=== PATIENT | female | born 1995 | race Asian ===

== ENCOUNTER 2023-08-07 03:20 | Inpatient (IN) | payer BC ==
[2023-08-07] MEDS ORDERED: OXYTOCIN 30 UNITS/500 ML NS 30 UNIT in SALINE 1 500ML.BAG IV SCH (04:00)
[2023-08-07] MEDS ORDERED: miSOPROStoL 200 MCG TAB PO PRN (04:00)
[2023-08-07] MEDS ORDERED: METHYLERGONOVINE 0.2 MG/ML 1 ML AMP IM PRN (04:00)
[2023-08-07] MEDS ORDERED: CARBOPROST TROMETHAMINE 250 MCG/ML 1 ML AMP IM PRN (04:00)
[2023-08-07] MEDS ORDERED: TRANEXAMIC 1,000 MG/100ML-NACL 1,000 MG in EMPTY BAG 1 BAG IV PRN (04:00)
[2023-08-07] MEDS ORDERED: OXYTOCIN 10 UNIT/ML 1 ML VIAL IM PRN (04:00)
[2023-08-07 04:14] LABS: Basophils % (A) 0 %; Eosinophils # (A) 0.1 k/uL (0-0.7); Eosinophils % (A) 1 %; HCT 27.8 % (34.0-46.0); HGB 9.3 gm/dL (11.4-16.0); Hypochromasia Slight; Lymphocytes % (A) 20 %; MCH 27.1 pg (25.0-35.0); MCHC 33.3 g/dL (31.0-37.0); MCV 81.4 fL (80.0-100.0); Mean Platelet Volume 10.9; Monocytes # (A) 0.5 k/uL (0-1.0); Monocytes % (A) 5 %; Neutrophils # (A) 6.8 k/uL (1.3-7.7); Neutrophils % (A) 72 %; Platelet Count 164 k/uL (150-450); Poikilocytosis Moderate; RBC 3.42 m/uL (3.80-5.40); RDW 13.7 % (11.5-15.5); WBC 9.5 k/uL (3.8-10.6)
[2023-08-07] MEDS: LACTATED RINGERS 1,000 ML IV SCH (04:15)
[2023-08-07] MEDS: CITRIC ACID-SODIUM CITRATE 15 ML CUP PO ONE (04:44)
[2023-08-07] MEDS ORDERED: KETOROLAC 15 MG/ML 1 ML VIAL ONE (04:49)
[2023-08-07] MEDS ORDERED: MORPHINE SULFATE (PF) 0.3 MG/0.3 ML SYR ONE (04:49)
[2023-08-07] MEDS ORDERED: OXYTOCIN 30 UNITS/500 ML NS BAG IV ONE (04:49)
[2023-08-07] MEDS ORDERED: ONDANSETRON 4 MG/2 ML VIAL ONE (04:49)
[2023-08-07] MEDS ORDERED: METHYLERGONOVINE 0.2 MG/ML 1 ML AMP ONE (04:49)
[2023-08-07] MEDS ORDERED: DEXAMETHASONE SOD PHOSPHATE 4 MG/ML 1 ML VIAL ONE (04:49)
--- NOTE | 2023-08-07 06:14 | P.HPOB ---
History of Present Illness H&P Date: 08/07/23 Chief Complaint: Spontaneous rupture of membranes This is a 28-year-old female 4 para 1 with an estimated date of confinement of 09/05/2023, estimated gestational age of 35-6/7 weeks, with a monochorionic diamniotic twin gestation, who presents to labor and delivery with complaints of spontaneous rupture of membranes with clear fluid noted at about 2 AM. She had some mild tightening and cramping but no regular contractions. Her care has been with Dr. Lee. She has also been followed by maternal medicine due to the twin gestation. Twin B was also noted to have a velamentous cord insertion. labs: GC/Chlamydia/Trichomonas-negative Hemoglobin-12.5 Blood type-be positive Rubella-immune RPR-nonreactive HIV-nonreactive Hepatitis C antibody-nonreactive Random glucose-80 Antibody screen-negative Hepatitis B surface antigen-negative One hour Glucola-116 Obstetrical history: . History of 1 delivery at about 36 weeks f or unknown reasons in the [facility]. History of 2 miscarriages. Gynecologic history no history of sexually transmitted diseases. Social history: She is . She is currently unemployed. Review of Systems Constitutional: Denies chills, Denies fever Eyes: denies blurred vision, denies pain Ears, nose, mouth and throat: Denies headache, Denies sore throat Cardiovascular: Denies chest pain, Denies shortness of breath Respiratory: Denies cough Gastrointestinal: Reports abdominal pain (Irregular contractions) Genitourinary: Reports pelvic pain, Reports Musculoskeletal: Reports low back pain Integumentary: Denies pruritus, Denies rash Neurological: Denies numbness, Denies weakness Psychiatric: Denies anxiety, Denies depression Past Medical History Past Medical History: No Reported History History of Any Multi-Drug Resistant Organisms: None Reported Past Surgical History: Section Past Anesthesia/Blood Transfusion Reactions: No Reported Reaction Past Psychological History: No Psychological Hx Reported Smoking Status: Never smoker Past Alcohol Use History: None Reported Past Drug Use History: None Reported - Past Family History Mother History Unknown: Yes Medications and Allergies Home Medications Medication Instructions Recorded Confirmed Type Vit No.179/Iron/Folic 1 each PO DAILY 08/07/23 08/07/23 History [ Tablet] Allergies Allergy/AdvReac Type Severity Reaction Status Date / Time No Known Allergies Allergy Verified 08/07/23 03:22 Exam Osteopathic Statement: *. No significant issues noted on an osteopathic structural exam other than those noted in the History and Physical/Consult. Vital Signs Temp Pulse Resp BP Pulse Ox 08/07/23 05:55 97.2 F L 81 16 120/71 100 08/07/23 04:39 82 16 120/62 08/07/23 03:59 96 16 120/62 Intake and Output 08/06/23 08/06/23 08/07/23 14:59 22:59 06:59 Output Total 1500 Balance -1500 Output: Estimated Blood Loss 1500 Other: Voiding Method Indwelling Catheter Weight 72.121 kg Gen.: Pleasant, well-developed well-nourished gravid female in no acute distress HEENT: Within normal limits Heart: Regular rate and rhythm Lungs: Clear to auscultation bilaterally Abdomen: Cervix: Closed. Amnisure is positive with grossly ruptured clear fluid heart tones: Category 1 on both baby A and B. Contractions irregular. Extremities: Negative Homans Results Result Diagrams: 08/07/23 03:58 Abnormal Lab Results - Last 24 Hours (Table) 08/07/23 Range/Units 03:58 RBC 3.42 L (3.80-5.40) m/uL Hgb 9.3 L (11.4-16.0) gm/dL Hct 27.8 L (34.0-46.0) % Assessment and Plan (1) Monochorionic diamniotic twin gestation in third trimester Current Visit: Yes Status: Acute Code(s): O30.033 - TWIN , MONOCHORIONIC/DIAMNIOTIC, THIRD TRIMESTER SNOMED Code(s): 342827058 (2) Spontaneous rupture of membranes Current Visit: Yes Status: Acute Code(s): LNZ3611 - SNOMED Code(s): 887125580 (3) labor in third trimester with delivery Current Visit: Yes Status: Acute Code(s): O60.14X0 - LABOR THIRD TRI W DELIVERY THIRD TRI, UNSP SNOMED Code(s): 64589423604110621 (4) Previous delivery affecting Current Visit: Yes Status: Acute Code(s): O34.219 - MATERNAL CARE FOR UNSP TYPE SCAR FROM PREVIOUS DEL SNOMED Code(s): 386051556 Plan: Admission for spontaneous rupture membranes with twin gestation at approximately 36 weeks. Plan to proceed with repeat low transverse section. I have discussed the risks, benefits, and alternative therapies for the above- mentioned procedure and for both sedation/anesthesia as well as necessary blood products administration, if indicated, as they pertain to this patient. The patient has indicated her understanding and acceptance of the risks and procedur es discussed.
--- NOTE | 2023-08-07 06:23 | P.OP ---
Date of Procedure: 08/07/23 Preoperative Diagnosis: 1. Monochorionic diamniotic twin gestation at 35-6/7 weeks. 2. Spontaneous rupture membranes. 3. History of previous section. Postoperative Diagnosis: Same Procedure(s) Performed: Repeat low transverse section Anesthesia: spinal (Duramorph) Surgeon: Roxana Lyn [facility] Consultant #1: Jumana Samayoa Estimated Blood Loss (ml): 1,500 Pathology: other (Placenta) Condition: stable Disposition: floor Indications for Procedure: This is a 28-year-old female 4 para 1 with a monochorionic dye amniotic twin gestation at 35-6/7 weeks who presented with spontaneous rupture membranes. Her cervix was noted to be closed that she was having irregular contractions. She has a history of a previous delivery and has been scheduled for delivery for this . I have discussed the risks, benefits, and alternative therapies for the above- mentioned procedure and for both sedation/anesthesia as well as necessary blood products administration, if indicated, as they pertain to this patient. The patient has indicated her understanding and acceptance of the risks and procedures discussed. Operative Findings: Baby A is a viable male infant in the vertex presentation with scores of 8 at 1 minute and 9 at 5 minutes and weight of 6 lbs. 4 oz. Baby B is a viable male that was in the transverse lie with head to the left and scores of 8 at 1 minute and 7 at 5 minutes and infant weight of 5 pounds 15.6 ounces. Normal uterus tubes and ovaries are noted. She does have some omental adhesions to the anterior abdominal wall. Description of Procedure: The patient is taken to the operating room where she is placed in the dorsal supine position with leftward tilt after spinal Duramorph anesthesia is given. She is prepped and draped in the normal sterile fashion. Skin was tested and found to be adequately anesthetized. A Pfannenstiel skin incision was made with a scalpel been her previous laparotomy scar. A second knife was used to carry the incision down to the underlying layer of fascia. The fascia was nicked in the midline with a scalpel and then extended laterally bilaterally with Jeffers scissors. The anterior lip of the fascia was grasped with 2 Elsa clamps and then dissected off the underlying rectus muscle in the midline with Jeffers scissors. The inferior aspect of the fascial incision was grasped with 2 Elsa clamps and dissected off the underlying rectus muscle and the midline with Jeffers scissors. Next the peritoneum layer was tented up with 2 hemostats and then entered sharply with the scalpel. The incision is extended superiorly and inferiorly with Metzenbaum scissors. There are noted to be some omental adhesions to the anterior abdominal wall that are pushed to the side. Next a DeLee retractor is placed. The vesicouterine peritoneum is entered sharply with Metzenbaum scissors and extended laterally bilaterally with Metzenbaum scissors and then the bladder flap is pushed inferiorly. The lower uterine segment is incised in transverse fashion with the scalpel and then bluntly entered with a hemostat. Clear fluid is noted. The incision was then extended laterally bila terally with 2 fingers. Next the 's head is delivered through the incision. Nuchal cord times one was reduced around the 's head. Nose and mouth are bulb suctioned. The remainder of the infant is easily delivered and placed on mother's abdomen. Cord is clamped and cut. is taken to level I nursery by nursing staff. Next baby B is palpated with the head to the maternal left side. The head is brought to the incision and then rupture of membranes is carried out with a hemostat. Clear fluid is noted. The infant is then delivered easily through the incision and nose and mouth were bulb suctioned after delivery. Cord is clamped and cut. Uterine fundus is gently massaged and placenta is delivered manually. Uterus is exteriorized and cleared of all clots and debris. Uterus is noted to be slightly boggy and oxytocin was opened up. She was also given 1 dose of oxytocin straight. Uterine incision is closed with 0 Vicryl suture in a running locked fashion. A second layer of 0 Vicryl suture is used in a running fashion for hemostasis. Once adequate hemostasis as assured, the vesicouterine peritoneum is reapproximated with 2-0 Vicryl suture in a running fashion. Posterior cul-de-sac is suctioned of all clots and debris. Uterus is returned to the abdomen. Incision is noted to be hemostatic. Peritoneal layer is closed with 0 Vicryl suture in a running fa shion. Muscle layer is reapproximated with 0 Vicryl suture in interrupted fashion. Fascia layer is then closed with 0 PDS suture with 2 sutures meeting in the midline and the knots buried in either side and in the midline. The subcutaneous tissue was then closed with 2-0 Vicryl suture. Skin layer was then closed with yaw. All sponge and needle counts are correct. After the drape is taken down uterus is massaged and a large amount of clots are noted, approximately 500 mL worth. Uterus appears to be firm at this point and no further clots or heavy bleeding was noted. She was given 1 dose of Methergine 0.2 mg IM in the OR. The patient is taken to recovery room in stable condition.
[2023-08-07] MEDS ORDERED: diphenhydrAMINE 50 MG/ML 1 ML VIAL IVP PRN ×2 (06:38)
[2023-08-07] MEDS ORDERED: LANOLIN CREAM 5 GM TUBE TOPICAL PRN (06:38)
[2023-08-07] MEDS ORDERED: SIMETHICONE 80 MG CHEWABLE PO PRN (06:38)
[2023-08-07] MEDS ORDERED: HYDROmorphone 0.5 MG/0.5 ML SYRINGE IVP PRN (06:38)
[2023-08-07] MEDS ORDERED: HYDROmorphone 1 MG/ML 1 ML SYRINGE IVP PRN (06:38)
[2023-08-07] MEDS ORDERED: diphenhydrAMINE 25 MG CAP PO PRN (06:38)
[2023-08-07] MEDS ORDERED: diphenhydrAMINE 50 MG CAP PO PRN (06:38)
[2023-08-07] MEDS ORDERED: ZOLPIDEM 5 MG TAB PO PRN (06:38)
[2023-08-07] MEDS ORDERED: NALOXONE 0.4 MG/ML 1 ML VIAL IV PRN (06:38)
[2023-08-07] MEDS ORDERED: ONDANSETRON 4 MG/2 ML VIAL IVP PRN (06:38)
[2023-08-07] MEDS: SENNOSIDES-DOCUSATE SODIUM 1 EACH TAB PO SCH (09:14)
[2023-08-07] MEDS: ACETAMINOPHEN IV (For NPO) 1,000 MG in EMPTY BAG 1 BAG IVPB SCH (10:02)
[2023-08-07] MEDS: METOCLOPRAMIDE 5 MG/ML 2 ML VIAL IVP PRN (12:25)
[2023-08-07] MEDS: KETOROLAC 15 MG/ML 1 ML VIAL IVP SCH (22:32)
[2023-08-07] MEDS: IBUPROFEN 600 MG TAB PO SCH (22:32)
[2023-08-07] MEDS: ACETAMINOPHEN TAB 500 MG TAB PO SCH (22:32)
[2023-08-08 06:32] LABS: Basophils % (A) 0 %; Eosinophils # (A) 0.1 k/uL (0-0.7); Eosinophils % (A) 1 %; Hypochromasia Moderate; Lymphocytes # (A) 2.2 k/uL (1.0-4.8); Lymphocytes % (A) 22 %; MCH 27.3 pg (25.0-35.0); MCHC 33.2 g/dL (31.0-37.0); MCV 82.1 fL (80.0-100.0); Monocytes # (A) 0.6 k/uL (0-1.0); Monocytes % (A) 6 %; Neutrophils % (A) 69 %; Platelet Count 141 k/uL (150-450); Poikilocytosis Moderate; RBC 2.18 m/uL (3.80-5.40); RDW 14.2 % (11.5-15.5); WBC 10.1 k/uL (3.8-10.6)
[2023-08-08 06:59] LABS: HCT 17.9 % (34.0-46.0); HGB 5.9 gm/dL (11.4-16.0)
[2023-08-08] MEDS: PRENATAL VIT-IRON-FOLIC ACID 1 EACH TABLET PO SCH (18:34)
[2023-08-09 07:49] LABS: Basophils % (A) 0 %; Eosinophils # (A) 0.2 k/uL (0-0.7); Eosinophils % (A) 2 %; Hypochromasia Moderate; Lymphocytes # (A) 1.9 k/uL (1.0-4.8); Lymphocytes % (A) 20 %; MCH 27.1 pg (25.0-35.0); MCHC 32.7 g/dL (31.0-37.0); MCV 82.8 fL (80.0-100.0); Mean Platelet Volume 10.5; Monocytes # (A) 0.6 k/uL (0-1.0); Monocytes % (A) 6 %; Neutrophils % (A) 71 %; Platelet Count 162 k/uL (150-450); Poikilocytosis Slight; RDW 14.2 % (11.5-15.5); WBC 9.9 k/uL (3.8-10.6)
[2023-08-09 07:52] LABS: HCT 19.1 % (34.0-46.0); HGB 6.2 gm/dL (11.4-16.0)
--- NOTE | 2023-08-09 08:21 | P.PN ---
Progress Note - Text Progress Note Date: 08/09/23 Postoperative day 2 status post section under spinal anesthesia, and intrathecal morphine given for postoperative analgesia, patient doing well, there is no anesthesia related complications, Patient had no headache, vital signs stable , Assessment and plan= postop day 2 status post , doing well there is no anesthesia related complication.
--- NOTE | 2023-08-09 12:32 | P.PNOBGPC ---
Subjective - Subjective Principal diagnosis: Status post repeat low transverse postop day 1 Interval history: Patient seen and examined. Her hemoglobin is quite low at 5.9. Patient says she feels a lot better than she did yesterday and refuses a blood transfusion at this time. She denies nausea, vomiting, chest pain, shortness of breath or calf pain as well as dizziness upon standing or headache. Patient reports: Reports appetite normal, Reports voiding normally, Reports pain well controlled, Reports ambulating normally Objective - Vital Signs Latest vital signs: Vital Signs Temp Pulse Resp BP Pulse Ox 08/09/23 08:15 98.0 F 88 16 103/58 100 08/09/23 00:00 100 16 120/72 99 08/08/23 16:17 97.7 F 102 H 14 120/76 Intake and Output 08/08/23 08/09/23 08/09/23 22:59 06:59 14:59 Intake Total 480 Balance 480 Intake: Oral 480 Other: # Voids 1 2 1 - Exam Lungs: bilateral: normal Chest: Normal S1, Normal S2 Extremities: Present: normal Abdomen: Present: normal appearance, soft. Absent: distention, tenderness Incision: Present: normal, dry, intact Uterus: Present: normal, firm - Labs Labs: Abnormal Lab Results - Last 24 Hours (Table) 08/09/23 Range/Units 06:58 RBC 2.30 L (3.80-5.40) m/uL Hgb 6.2 L* (11.4-16.0) gm/dL Hct 19.1 L* (34.0-46.0) % Assessment and Plan (1) Status post repeat low transverse section Current Visit: Yes Status: Acute Code(s): Z98.891 - HISTORY OF UTERINE SCAR FROM PREVIOUS SURGERY SNOMED Code(s): 876730363 (2) Anemia due to acute blood loss Current Visit: Yes Status: Acute Code(s): D62 - ACUTE POSTHEMORRHAGIC ANEMIA SNOMED Code(s): 548343892 Plan: 1. increase ambulation 2. monitor closely
--- NOTE | 2023-08-09 12:33 | P.PNOBGPC ---
Subjective - Subjective Principal diagnosis: Status post repeat low transverse postop day 2 Interval history: Patient seen and examined. Denies nausea, vomiting, chest pain, shortness of breath or calf pain also denies headache or dizziness upon standing. Patient would like to stay in the hospital at least 1 more night due to her twins being in the nursery. Patient reports: Reports appetite normal, Reports voiding normally, Reports pain well controlled, Reports ambulating normally [place]: doing well Objective - Vital Signs Latest vital signs: Vital Signs Temp Pulse Resp BP Pulse Ox 08/09/23 08:15 98.0 F 88 16 103/58 100 08/09/23 00:00 100 16 120/72 99 08/08/23 16:17 97.7 F 102 H 14 120/76 Intake and Output 08/08/23 08/09/23 08/09/23 22:59 06:59 14:59 Intake Total 480 Balance 480 Intake: Oral 480 Other: # Voids 1 2 1 - Exam Lungs: bilateral: normal Chest: Normal S1, Normal S2 Extremities: Present: normal Abdomen: Present: normal appearance, soft. Absent: distention, tenderness Incision: Present: normal, dry, intact Uterus: Present: normal, firm - Labs Labs: Abnormal Lab Results - Last 24 Hours (Table) 08/09/23 Range/Units 06:58 RBC 2.30 L (3.80-5.40) m/uL Hgb 6.2 L* (11.4-16.0) gm/dL Hct 19.1 L* (34.0-46.0) % Assessment and Plan (1) Status post repeat low transverse section Current Visit: Yes Status: Acute Code(s): Z98.891 - HISTORY OF UTERINE SCAR FROM PREVIOUS SURGERY SNOMED Code(s): 528034949 (2) Anemia due to acute blood loss Current Visit: Yes Status: Acute Code(s): D62 - ACUTE POSTHEMORRHAGIC ANEMIA SNOMED Code(s): 893157620 Plan: 1. cont po care
--- NOTE | 2023-08-10 08:59 | P.PNOBGPC ---
Subjective - Subjective Principal diagnosis: Status post section postoperative day #3 Interval history: Patient is doing okay. She is ambulating. She is currently in nursery holding her baby. She states she is passing flatus and bowel movement. Pain is fairly well controlled. Patient reports: Reports appetite normal, Reports voiding normally, Reports pain well controlled, Reports ambulating normally [place]: other (In level I nursery) Objective - Vital Signs Latest vital signs: Vital Signs Temp Pulse Resp BP Pulse Ox 08/10/23 08:00 98.0 F 86 16 113/66 99 08/10/23 00:00 97.8 F 102 H 15 126/80 100 08/09/23 16:45 98.3 F 98 16 118/72 99 Intake and Output 08/09/23 08/10/23 08/10/23 22:59 06:59 14:59 Intake Total 300 Balance 300 Intake: Oral 300 Other: # Voids 1 2 - Exam Extremities: Present: normal. Absent: tenderness, edema Assessment and Plan Assessment: Status post repeat section postoperative day #3 (1) Monochorionic diamniotic twin gestation in third trimester Current Visit: Yes Status: Acute Code(s): O30.033 - TWIN , MONOCHORIONIC/DIAMNIOTIC, THIRD TRIMESTER SNOMED Code(s): 250824416 (2) Spontaneous rupture of membranes Current Visit: Yes Status: Acute Code(s): BRH3296 - SNOMED Code(s): 908419754 (3) labor in third trimester with delivery Current Visit: Yes Status: Acute Code(s): O60.14X0 - LABOR THIRD TRI W DELIVERY THIRD TRI, UNSP SNOMED Code(s): 91702139412495276 (4) Previous delivery affecting Current Visit: Yes Status: Acute Code(s): O34.219 - MATERNAL CARE FOR UNSP TYPE SCAR FROM PREVIOUS DEL SNOMED Code(s): 310492537 Plan: Continue with postoperative and care today. Anticipate discharge home tomorrow.
[2023-08-11 09:03] VITALS: RESP 16
--- NOTE | 2023-08-11 10:04 | P.DS ---
Providers Date of admission: 08/07/23 03:59 Expected date of discharge: 08/11/23 Attending physician: Laurie Lee Primary care physician: Stated None - Discharge Diagnosis(es) (1) Monochorionic diamniotic twin gestation in third trimester Current Visit: Yes Status: Acute (2) Spontaneous rupture of membranes Current Visit: Yes Status: Acute (3) labor in third trimester with delivery Current Visit: Yes Status: Acute (4) Previous delivery affecting Current Visit: Yes Status: Acute Hospital Course: This is a 28-year-old female 4 para 1 at 35-6/7 weeks with twin gestation who presented with spontaneous rupture of membranes. She underwent a repeat low transverse section on 08/07/2023 and delivered a viable twin infants both males. Baby a was in the vertex presentation with scores of 8 at 1 minute and 9 at 5 minutes and weight of 6 lbs. 4 oz. Baby B was in the transverse position with scores of 8 at 1 minute and 7 at 5 minutes and weight of 5 pounds 15.6 ounces. Her postoperative course has been uncomplicated. Both babies have been in level I nursery. She is working at breast-feeding. Lochia is decreasing. She is passing flatus and bowel movement. Her pain is well-controlled with ibuprofen and Tylenol. Vital signs are stable. Abdomen is soft with positive bowel sounds 4. Incision is clean dry and intact with yaw in place. Extremities show negative Homans. Impression is status os repeat low transverse section postoperative day #4. Plan is to discharge home today. Routine postoperative and instructions are given. Tyler will be removed and Steri-Strips placed prior to discharge. She is advised follow-up with Dr. Lee in the office next week for a postoperative check and in 6 weeks for check. She is advised to call the office if she has any further questions or concerns prior to her appointment time. Yaw will be removed and Steri-Strips placed prior to discharge. Procedures: Repeat low transverse section on 08/07/2023 Patient Condition at Discharge: Stable Plan - Discharge Summary New Discharge Prescriptions: New Ibuprofen [Motrin] 600 mg PO Q6H #60 tab Continue Vit No.179/Iron/Folic [ Tablet] 1 each PO DAILY Discharge Medication List Vit No.179/Iron/Folic [ Tablet] 1 each PO DAILY 08/07/23 [History] Ibuprofen [Motrin] 600 mg PO Q6H #60 tab 08/11/23 [Rx] Follow up Appointment(s)/Referral(s): Laurie Lee DO [Doctor of Osteopathic Medicine] - 09/13/23 10:00 am (Post Op Appointment 08-16-2023 at 1:30) Activity/Diet/Wound Care/Special Instructions: Instructions 1. Do not begin any exercise program for 3 weeks. 2. Do not resume sexual relations for 3 weeks or longer if uncomfortable. 3. You may take tub baths or showers at any time. 4. You may use tampons if desired after 3 weeks. 5. Keep the area of episiotomy (stitches) clean and dry. 6. If you are not nursing, wear a good fitting, supportive bra during the day and limit fluid intake for at least 1 week to prevent breast engorgement. 7. Call the office, [phone], within the next week to make appointment for your 6 week checkup if it has not already been made. 8. Report any of the following occurrences to the doctor promptly: a. Heavy, excessive bleeding b. Chills, fever c. Burning or frequency of urination d. Pain or redness and breasts if nursing e. Increasing pain or swelling in episiotomy (stitches). In addition to the above instructions, the following additional should be followed: 1. No heavy lifting or straining (exercising) until after 6 week checkup. 2. Keep abdominal incision clean and dry: You may wear a dressing if more comfortable. 3. Make office appointment for 10 days after going home or as instructed by her doctor. Discharge Disposition: HOME SELF-CARE
[2023-08-11 17:25] VITALS: BP 125/68; PULSE 77; TEMP 98.3
== END 2023-08-11 18:49 | disposition home or self-care (01) | DRG 787 ==
LOC: FBPOP 03:20 → 4FBP 03:59
PROVIDERS: ADMIT Obstetrics & Gynecology; ATTEND Obstetrics & Gynecology
PROC: 10D00Z1 Extraction of Products of Conception, Low, Open Approach (ICD-10-PCS; principal; 2023-08-07 05:00)
DX: O60.14X1 Preterm labor third trimester with preterm delivery third trimester, fetus 1 (principal); D62 Acute posthemorrhagic anemia; O30.033 Twin pregnancy, monochorionic/diamniotic, third trimester; Z37.2 Twins, both liveborn; O32.2XX2 Maternal care for transverse and oblique lie, fetus 2; O99.02 Anemia complicating childbirth; O60.14X2 Preterm labor third trimester with preterm delivery third trimester, fetus 2; Z3A.35 35 weeks gestation of pregnancy; O34.211 Maternal care for low transverse scar from previous cesarean delivery; O43.123 Velamentous insertion of umbilical cord, third trimester; Z28.310 Unvaccinated for COVID-19; K66.0 Peritoneal adhesions (postprocedural) (postinfection); Z56.0 Unemployment, unspecified
CPT/HCPCS: 59025; 84112; 85025; 86850; 86900; 86901; 88307; 99213

== ENCOUNTER 2024-12-27 17:47 | Emergency (ER) | payer OTHER ==
[2024-12-27 17:52] VITALS: RESP 18
--- NOTE | 2024-12-27 18:11 | ED ---
Abdominal Pain HPI - General Chief Complaint: Abdominal Pain Stated Complaint: Abd pain-14 weeks preg Time Seen by Provider: 12/27/24 17:56 Source: patient, family, RN notes reviewed Mode of arrival: ambulatory Limitations: no limitations - History of Present Illness Initial Comments: This is a 14-week , 29-year-old female with history of presenting with for abdominal pain since 1400 this afternoon. Patient states intermittent cramping has been occurring in her lower abdomen with associated diarrhea and numerous bowel movements and chills. Patient states cramping occurs every 5 minutes but has begun to resolve. Patient had ultrasound performed on 11/14/2024 confirming intrauterine at that time. Patient does endorse having breakfast of rice, uncooked egg and "not fresh, mushy" dry fish with package originally opened 1 month ago. Patient denies fever, dizziness/lightheadedness, chest pain, nausea/vomiting, vaginal bleeding/discharge. Endorses concern for baby. MD Complaint: abdominal pain Onset/Timin -: hour(s) Time: 14:00 Location: LLQ, RLQ Quality: cramping Consistency: intermittent Context: possible food poisoning Associated Symptoms: diarrhea, chills - Related Data Home Medications Medication Instructions Recorded Confirmed Vit No.179/Iron/Folic 1 each PO DAILY 08/07/23 08/07/23 [ Tablet] Previous Rx's Medication Instructions Recorded Ibuprofen [Motrin] 600 mg PO Q6H #60 tab 08/11/23 Allergies Allergy/AdvReac Type Severity Reaction Status Date / Time No Known Allergies Allergy Verified 12/27/24 17:53 Review of Systems ROS Statement: Those systems with pertinent positive or pertinent negative responses have been documented in the HPI. ROS Other: All systems not noted in ROS Statement are negative. Past Medical History Past Medical History: No Reported History History of Any Multi-Drug Resistant Organisms: None Reported Past Surgical History: Section Past Anesthesia/Blood Transfusion Reactions: No Reported Reaction Past Psychological History: No Psychological Hx Reported Smoking Status: Never smoker Past Alcohol Use History: None Reported Past Drug Use History: None Reported - Past Family History Mother History Unknown: Yes General Exam Limitations: no limitations General appearance: alert, in no apparent distress Head exam: Present: atraumatic, normocephalic, normal inspection Eye exam: Present: normal appearance, PERRL, EOMI. Absent: scleral icterus, conjunctival injection, periorbital swelling ENT exam: Present: normal exam, mucous membranes moist Neck exam: Present: normal inspection. Absent: tenderness, meningismus, lymphadenopathy Respiratory exam: Present: normal lung sounds bilaterally. Absent: respiratory distress, wheezes, rales, rhonchi, stridor Cardiovascular Exam: Present: regular rate, normal rhythm, normal heart sounds. Absent: systolic murmur, diastolic murmur, rubs, gallop, clicks GI/Abdominal exam: Present: soft, distended (Mild distention assumed due to ), tenderness (Positive epigastric tenderness without guarding. Negative lower abdominal tenderness), diminished bowel sounds, hypoactive bowel sounds. Absent: guarding, rebound, rigid Extremities exam: Present: normal inspection, full ROM, normal capillary refill. Absent: tenderness, pedal edema, joint swelling, calf tenderness Back exam: Present: normal inspection Neurological exam: Present: alert, oriented X3, CN II-XII intact Psychiatric exam: Present: normal affect, normal mood Skin exam: Present: warm, dry, intact, normal color. Absent: rash Course Vital Signs 12/27/24 12/27/24 17:48 18:09 Temperature 98.4 F 99.2 F Pulse Rate 74 100 Respiratory 18 18 Rate Blood Pressure 120/70 128/78 O2 Sat by Pulse 100 98 Oximetry Medical Decision Making - Medical Decision Making Was pt. sent in by a medical professional or institution (, PA, [employer], urgent care, hospital, or senior care...) When possible be specific @ -[No] Did you speak to anyone other than the patient for history (EMS, parent, family, police, friend...)? What history was obtained from this source @ - provided portion of HPI Did you review nursing and triage notes (agree or disagree)? Why? @ -[I reviewed and agree with nursing and triage notes] Were old charts reviewed (outside hosp., previous admission, EMS record, old EKG, old radiological studies, urgent care reports/EKG's, senior care records)? Report findings @ -[No old charts were reviewed] Differential Diagnosis (chest pain, altered mental status, abdominal pain women, abdominal pain men, vaginal bleeding, weakness, fever, dyspnea, syncope, headache, dizziness, GI bleed, back pain, seizure, CVA, palpatations, mental health, musculoskeletal)? @ -Differential Abdominal Pain Women: Appendicitis, Cholecystitis, diverticulosis, ischemic bowel, pancreatitis, hepatitis, UTI, gastroenteritis, AAA, incarcerated hernia, bowel obstruction, constipation, inflammatory bowel, hepatitis, peptic ulcer disease, splenic infarction, perforated viscus, vulvitis, ovarian torsion, PID, kidney stone, placenta abruption, this is not meant to be an all-inclusive list EKG interpreted by me (3pts min.). @ -Not done X-rays interpreted by me (1pt min.). @ -[None done] CT interpreted by me (1pt min.). @ -[None done] U/S interpreted by me (1pt. min.). @ -[None done] What testing was considered but not performed or refused? (CT, X-rays, U/S, labs)? Why? @ -[None] What meds were considered but not given or refused? Why? @ -[None] Did you discuss the management of the patient with other professionals (professionals i.e. , PA, [employer], lab, RT, psych nurse, social service director, finishing machine tender, teacher, training systems officer, rn field case manager)? Give summary @ -[No] Was smoking cessation discussed for >3mins.? @ -[No] Was critical care preformed (if so, how long)? @ -[No] Were there social determinants of health that impacted care today? How? (Homelessness, low income, unemployed, alcoholism, drug addiction, transportation, low edu. Level, literacy, decrease access to med. care, fci, rehab)? @ -[No] Was there de-escalation of care discussed even if they declined (Discuss DNR or withdrawal of care, Hospice)? DNR status @ -[No] What co-morbidities impacted this encounter? (DM, HTN, Smoking, COPD, CAD, Cancer, CVA, ARF, Chemo, Hep., AIDS, mental health diagnosis, sleep apnea, morbid obesity)? @ -[None] Was patient admitted / discharged? Hospital course, mention meds given and route, prescriptions, significant lab abnormalities, going to OR and other pertinent info. @ -[hospital course] Undiagnosed new problem with uncertain prognosis? @ -[No] Drug Therapy requiring intensive monitoring for toxicity (Heparin, Nitro, Insulin, Cardizem)? @ -[No] Were any procedures done? @ -[No] Diagnosis/symptom? @ -Food poisoning, enteritis, hyperglycemia during Acute, or Chronic, or Acute on Chronic? @ -Acute Uncomplicated (without systemic symptoms) or Complicated (systemic symptoms)? @ -Uncomplicated Side effects of treatment? @ -[No] Exacerbation, Progression, or Severe Exacerbation? @ -[No] Poses a threat to life or bodily function? How? (Chest pain, [place], [place], pneumonia, PE, COPD, DKA, ARF, appy, cholecystitis, CVA, Diverticulitis, Homicidal, Suicidal, threat to staff... and all critical care pts) @ -[No] - Lab Data Result diagrams: 12/27/24 18:22 12/27/24 18:22 Lab Results 12/27/24 12/27/24 12/27/24 Range/Units 18:22 18:22 18:22 WBC 13.96 H (4.50-10.00) 10*3/uL RBC 4.71 (4.10-5.20) 10*6/uL Hgb 13.8 (12.0-15.0) g/dL Hct 39.0 (37.2-46.3) % MCV 82.8 (80.0-97.0) fL MCH 29.3 (27.0-32.0) pg MCHC 35.4 (32.0-37.0) g/dL Plt Count 239 (140-440) 10*3/uL MPV 9.7 (9.5-12.2) fL Immature Gran % (Auto) 0.4 % Neutrophils % 93.4 % Lymphocytes % 3.9 % Monocytes % 1.9 % Eosinophils % 0.1 % Basophils % 0.3 % Immature Gran # 0.06 H (0.00-0.04) 10*3/uL Neutrophils # 13.03 H (1.80-7.70) 10*3/uL Lymphocytes # 0.55 L (0.90-5.00) 10*3/uL Monocytes # 0.27 (0.20-1.00) 10*3/uL Eosinophils # 0.01 L (0.04-0.35) 10*3/uL Basophils # 0.04 (0.00-0.10) 10*3/uL Sodium 135 L (137-145) mmol/L Potassium 3.4 L (3.5-5.1) mmol/L Chloride 101 (98-107) mmol/L Carbon Dioxide 22 (22-30) mmol/L Anion Gap 12 mmol/L BUN 7 (7-17) mg/dL Creatinine 0.38 L (0.52-1.04) mg/dL Est GFR (CKD-EPI)AfAm >90 (>60 ml/min/1.73 sqM) Est GFR (CKD-EPI)NonAf >90 (>60 ml/min/1.73 sqM) Glucose 152 H (74-99) mg/dL Plasma Lactic Acid Adrian (0.7-2.0) mmol/L Calcium 9.9 (8.4-10.2) mg/dL Total Bilirubin 0.5 (0.2-1.3) mg/dL AST 26 (14-36) U/L ALT 12 (4-34) U/L Alkaline Phosphatase 65 (38-126) U/L Total Protein 7.7 (6.3-8.2) g/dL Albumin 4.5 (3.5-5.0) g/dL Lipase 56 (23-300) U/L Urine Color Urine Appearance (Clear) Urine pH (5.0-8.0) Ur Specific [place] (1.001-1.035) Urine Protein (Negative) Urine Glucose (UA) (Negative) Urine Ketones (Negative) Urine Blood (Negative) Urine Nitrite (Negative) Urine Bilirubin (Negative) Urine Urobilinogen (<2.0) mg/dL Ur Leukocyte Esterase (Negative) Blood Type B Positive Blood Type Recheck B Pos Bld Type Recheck Status No 12/27/24 12/27/24 Range/Units 18:22 18:28 WBC (4.50-10.00) 10*3/uL RBC (4.10-5.20) 10*6/uL Hgb (12.0-15.0) g/dL Hct (37.2-46.3) % MCV (80.0-97.0) fL MCH (27.0-32.0) pg MCHC (32.0-37.0) g/dL Plt Count (140-440) 10*3/uL MPV (9.5-12.2) fL Immature Gran % (Auto) % Neutrophils % % Lymphocytes % % Monocytes % % Eosinophils % % Basophils % % Immature Gran # (0.00-0.04) 10*3/uL Neutrophils # (1.80-7.70) 10*3/uL Lymphocytes # (0.90-5.00) 10*3/uL Monocytes # (0.20-1.00) 10*3/uL Eosinophils # (0.04-0.35) 10*3/uL Basophils # (0.00-0.10) 10*3/uL Sodium (137-145) mmol/L Potassium (3.5-5.1) mmol/L Chloride (98-107) mmol/L Carbon Dioxide (22-30) mmol/L Anion Gap mmol/L BUN (7-17) mg/dL Creatinine (0.52-1.04) mg/dL Est GFR (CKD-EPI)AfAm (>60 ml/min/1.73 sqM) Est GFR (CKD-EPI)NonAf (>60 ml/min/1.73 sqM) Glucose (74-99) mg/dL Plasma Lactic Acid Adrian 2.1 H* (0.7-2.0) mmol/L Calcium (8.4-10.2) mg/dL Total Bilirubin (0.2-1.3) mg/dL AST (14-36) U/L ALT (4-34) U/L Alkaline Phosphatase (38-126) U/L Total Protein (6.3-8.2) g/dL Albumin (3.5-5.0) g/dL Lipase (23-300) U/L Urine Color Yellow Urine Appearance Clear (Clear) Urine pH 5.0 (5.0-8.0) Ur Specific [place] 1.021 (1.001-1.035) Urine Protein Negative (Negative) Urine Glucose (UA) 3+ H (Negative) Urine Ketones Negative (Negative) Urine Blood Negative (Negative) Urine Nitrite Negative (Negative) Urine Bilirubin Negative (Negative) Urine Urobilinogen <2.0 (<2.0) mg/dL Ur Leukocyte Esterase Negative (Negative) Blood Type Blood Type Recheck Bld Type Recheck Status Disposition Clinical Impression: Food poisoning, Enteritis, Hyperglycemia in Disposition: HOME SELF-CARE Condition: Fair Instructions (If sedation given, give patient instructions): Enteritis (ED), Food Poisoning (ED) Additional Instructions: Bananas, rice, applesauce, tea, toast. Increase water and Gatorade/Pedialyte intake. Follow-up with PCP/[facility] for ongoing monitoring of symptoms and Is patient prescribed a controlled substance at d/c from ED?: No Referrals: Nate Barillas MD [Primary Care Provider] - 1-2 days Cherelle Jeong MD [STAFF PHYSICIAN] - 1-2 days Time of Disposition: 20:18
[2024-12-27 18:12] VITALS: TEMP 99.2
[2024-12-27] MEDS: SODIUM CHLORIDE 0.9% 1,000 ML IV STA (18:25)
[2024-12-27 18:34] LABS: Basophils # (A) 0.04 10*3/uL (0.00-0.10); Basophils % (A) 0.3 %; Eosinophils # (A) 0.01 10*3/uL (0.04-0.35); Eosinophils % (A) 0.1 %; HCT 39.0 % (37.2-46.3); HGB 13.8 g/dL (12.0-15.0); Lymphocytes # (A) 0.55 10*3/uL (0.90-5.00); Lymphocytes % (A) 3.9 %; MCH 29.3 pg (27.0-32.0); MCHC 35.4 g/dL (32.0-37.0); MCV 82.8 fL (80.0-97.0); Monocytes # (A) 0.27 10*3/uL (0.20-1.00); Monocytes % (A) 1.9 %; Neutrophils # (A) 13.03 10*3/uL (1.80-7.70); Neutrophils % (A) 93.4 %; Platelet Count 239 10*3/uL (140-440); RBC 4.71 10*6/uL (4.10-5.20); RDW 12.6 % (11.5-14.5); WBC 13.96 10*3/uL (4.50-10.00)
[2024-12-27 18:38] LABS: Bilirubin,Urine Negative (Negative); Blood,Urine Negative (Negative); Color,Urine Yellow; Glucose,Urine (UA) 3+ (Negative); Ketones,Urine Negative (Negative); Leukocyte Esterase,Urine Negative (Negative); Nitrite,Urine Negative (Negative); PH, Urine 5.0 (5.0-8.0); Protein,Urine Negative (Negative); Specific Gravity,Urine 1.021 (1.001-1.035); Urobilinogen,Urine <2.0 mg/dL (<2.0)
[2024-12-27 18:45] LABS: ALT 12 U/L (4-34); AST 26 U/L (14-36); African American GFR (CKD) >90 (>60 ml/min/1.73 sqM); Albumin 4.5 g/dL (3.5-5.0); Alkaline Phosphatase 65 U/L (38-126); Anion Gap 12 mmol/L; Blood Urea Nitrogen 7 mg/dL (7-17); Calcium 9.9 mg/dL (8.4-10.2); Carbon Dioxide 22 mmol/L (22-30); Chloride 101 mmol/L (98-107); Glucose 152 mg/dL (74-99); Lipase 56 U/L (23-300); Non-African American GFR(CKD) >90 (>60 ml/min/1.73 sqM); Potassium 3.4 mmol/L (3.5-5.1); Sodium 135 mmol/L (137-145); Total Protein 7.7 g/dL (6.3-8.2)
[2024-12-27] MEDS: POTASSIUM CHLORIDE ER 20 MEQ TAB.ER PO STA (19:03)
--- NOTE | 2024-12-27 19:06 | US ---
EXAMINATION TYPE: US OB >= 14 wk fetus DATE OF EXAM: 12/27/2024 COMPARISON: Obstetric ultrasound 11/14/2024 CLINICAL INDICATION: Female, 29 years old with history of Lower abdominal cramping; Diarrhea TECHNIQUE: Transabdominal (TA) grayscale sonographic images obtained. FINDINGS: GESTATIONAL AGE / DATING Physician Established: (14 weeks/1 days) EDC: 06/26/2025 Dates by LMP: (14 weeks/1 days) EDC: 06/26/2025 Dates by Current Scan: (14 weeks/3 days) EDC: 06/24/2025 Beta HCG (if available): SURVEY IUP: Single PLACENTA: Posterior PREVIA: No Previa JUDY: 10.1 cm Normal CERVICAL LENGTH (transabdominal: norm > 3.0cm): 3.8 cm BIOMETRY LIE: Transverse with head maternal Right BPD: 2.7 cm 14 weeks / 5 days HC: 9.8 cm 14 weeks / 4 days AC: 7.8 cm 14 weeks / 2 days FL: 1.2 cm 13 weeks / 5 days ESTIMATED WEIGHT IN GRAMS: 87 grams ESTIMATED WEIGHT IN LBS/OZ: 0 lbs. 3 oz. WEIGHT PERCENTAGE BASED ON ESTABLISHED DATES: 23% HC/AC: 1.3 Normal FL/AC: 16% HEART RATE: 153 bpm RHYTHM: Normal IMPRESSION: Single live intrauterine with biometry and gestational age data as summarized above. Continued clinical surveillance as necessary. [facility], , 12/27/2024 7:04 PM
[2024-12-27 20:30] VITALS: BP 121/74; PULSE 75
[2024-12-27 20:36] LABS: HCG,Quantitative Serum 69646.1 mIU/mL
== END 2024-12-27 20:30 | disposition home or self-care (01) ==
LOC: EC 17:47
DX: O26.892 Other specified pregnancy related conditions, second trimester (principal); A05.9 Bacterial foodborne intoxication, unspecified; O99.810 Abnormal glucose complicating pregnancy; Z3A.14 14 weeks gestation of pregnancy
CPT/HCPCS: 36415; 76805; 80053; 81003; 83605; 83690; 84702; 85025; 86900; 86901; 96360; 96361; 99284